=== PATIENT | female | born 1990 | race Caucasian/White ===

== ENCOUNTER 2019-01-17 22:22 | Inpatient (IN) | payer MEDICAID ==
[~2019-01-17] VITALS: Ht 154.9 cm; Wt 62.0 kg
[2019-01-17] MEDS ORDERED: LACTATED RINGER'S 1,000 ML IV SCH (22:29)
[2019-01-17] MEDS ORDERED: CARBOPROST 250 MCG INJ IM PRN ×2 (22:30→23:30)
[2019-01-17] MEDS ORDERED: MISOPROSTOL 200 MCG TAB PR PRN ×2 (22:30→23:30)
[2019-01-17] MEDS ORDERED: OXYTOCIN 30 UNITS/LR 500 ML IV PRN ×2 (22:30→23:30)
[2019-01-17] MEDS ORDERED: IBUPROFEN 600 MG TAB PO PRN (22:30)
[2019-01-17] MEDS ORDERED: LIDOCAINE 1% (MPF) 30 ML INJ INJ PRN (22:30)
[2019-01-17] MEDS ORDERED: BUTORPHANOL 2 MG INJ IV PRN (22:30)
[2019-01-17] MEDS ORDERED: OXYTOCIN 30 UNITS/LR 500 ML IV SCH ×3 (22:30→23:12)
[2019-01-17] MEDS ORDERED: AMPICILLIN 2 GM/NS (PMX) 100 ML IV ONE (22:30)
[2019-01-17] MEDS ORDERED: METHYLERGONOVINE 0.2 MG INJ IM PRN ×2 (22:30→23:30)
[2019-01-17] MEDS ORDERED: BUTORPHANOL 1 MG INJ IV PRN (22:30)
[2019-01-17] MEDS ORDERED: AMPICILLIN 2 GM/NS (PMX) 100 ML ONE (22:31)
--- NOTE | 2019-01-17 23:02 | TRIAGE ---
OB Triage Datetime Report Generated by CPN: 01/17/2019 23:02 Datetime: 01/17/2019 22:28 Time of Arrival: 01/17/2019 22:17 EGA: 39.2 Arrived By: Wheelchair Arrived From: Home Chief Complaint: UC'S Movement: Present Contractions: Regular Time Contractions Began: 01/17/2019 19:00 Contractions: Q2MIN PER PT Rupture of Membranes: Denies Vaginal Discharge: Denies Recent Sexual Intercouse: Denies Abdominal Trauma: Not Applicable Patient Complaints: Contractions Time Provider Notified: 01/17/2019 22:21 Provider Notified: ESHAGHIAN Initial Plan: SVE, CEFM Datetime: 01/17/2019 22:20 Pain Assessment Pain Scale: 10 Pain Presence: Intermittent Pain Type: Contraction Pain Location: Abdomen Pain Goal: 0 Pain Relief Measures: Comfort Measures Vaginal Exam Dilatation (cms): 10.0 Effacement (%): 100 Station: 0 Membrane Status: Bulging
--- NOTE | 2019-01-17 23:17 | LDN ---
Date/Time of Note Date/Time of Note DATE: 01/17/19 TIME: 23:16 Delivery Summary Weeks of Gestation 39 Placenta Delivered: Spontaneously Meconium: Light Episiotomy: No Perineal laceration: 2 Laceration repair: 2nd degree perineal laceration repair with 2-0 and 3-0 chromic Anesthesia type: Local Estimated blood loss: 200 Sponge & Needle done & correct: Yes All needle counts correct: Yes Any foreign bodies felt in the: No Infant Delivery Information Sex Infant Sex: female Apgars 1 Minute: 8 5 Minute: 9 Suctioning Nose & mouth suctioned at ryan: No Delee suction performed: No Umbilical Cord Umbilical cord with: 3 Vessels Cord presentations: no nuchal cord Cord Blood was obtained: Yes MIGUEL SILVER MD Jan 17, 2019 23:17
[2019-01-17] MEDS ORDERED: WITCH HAZEL/GLYCERIN PAD PR PRN (23:30)
[2019-01-17] MEDS ORDERED: LANOLIN HPA 1 PKT TOP PRN (23:30)
[2019-01-17] MEDS ORDERED: BENZOCAINE 20% 56 ML SPRAY TOP PRN (23:30)
[2019-01-17] MEDS ORDERED: NACL 0.9% 3 ML SYG IV SCH (23:30)
[2019-01-17] MEDS ORDERED: ONDANSETRON 4 MG INJ IV PRN (23:30)
[2019-01-17] MEDS ORDERED: SENNA/DOCUSATE NA (8.6MG/50MG) TAB PO PRN (23:30)
[2019-01-17] MEDS ORDERED: OXYCODONE/ASPIRIN (4.88/325) TAB PO PRN ×2 (23:30)
[2019-01-17] MEDS ORDERED: ACETAMINOPHEN 325 MG TAB PO PRN (23:30)
--- NOTE | 2019-01-17 23:43 | PREOPHP ---
DATE OF ADMISSION: 01/17/2019 HISTORY OF PRESENT ILLNESS: Ms. Adela Arevalo is a 28-year-old 2, para 1, EDC 01/22/2019, i ntrauterine at 39 weeks gestational age, presented to triage in active labor. She reports having contractions since early this evening. She denies any vaginal bleeding or discharge. Her pre [place] care took place at [facility]; however, no care records available a t this time. PAST MEDICAL HISTORY: None. MEDICATIONS: vitamins. PAST SURGICAL HISTORY: None. OBSTETRICAL HISTORY: x1 vaginal delivery. GYNECOLOGIC HISTORY: 12, regular 3 to 4 days. She denies any sexually transmitted disease. Sexuall y active with 1 partner. SOCIAL HISTORY: She denies any smoking, drugs or alcohol. FAMILY HISTORY: None. REVIEW OF SYSTEMS: All within normal except history of present illness. PHYSICAL EXAMINATION: HEENT: Within normal. LUNGS: CTA bilateral. CARDIOVASCULAR: S1, S2, regular rhythm. ABDOMEN: Gravid and nontender. Negative CVA bilateral. EXTREMITIES: Negative. No calf tenderness. PELVIC: Vaginal exam fully dilated, 100% effaced, +2 station, intact. heart tracing category 1. Tocometer regular contractions. ASSESSMENT: Intrauterine at term, in active labor. PLAN: Anticipate vaginal delivery. Dictated By: MIGUEL ARANGO/ALEX Conf#: [id number] DID#: [id number]
[2019-01-18 00:20] VITALS: Ht 154.9 cm; Wt 62.0 kg
[2019-01-18 00:45] VITALS: BP 123/74; PULSE 87; RESP 20
[2019-01-18] MEDS ORDERED: AMPICILLIN 1 GM/NS (PMX) 50 ML IV SCH (02:30)
[2019-01-18 04:00] VITALS: BP 112/59; PULSE 89; RESP 18
[2019-01-18] MEDS: IBUPROFEN 600 MG TAB PO SCH ×4 (06:30→17:33)
[2019-01-18 08:30] VITALS: BP 110/71; PULSE 80; RESP 16
[2019-01-18] MEDS: SENNA/DOCUSATE NA (8.6MG/50MG) TAB PO SCH ×2 (08:41→21:59)
[2019-01-18 12:19] VITALS: BP 109/72; PULSE 77; RESP 18
--- NOTE | 2019-01-18 13:35 | PD.PPDC ---
QUALITY CONTROL ASSESSOR Discharge Instruction Condition [id number] Patient Condition: Kxnim2k Good Diet Hjxjn9Td Diet: Rtzfi0n Resume Regular Diet Activity/Restrictions [id number] Activity: Dwzik6q Normal Activity May Shower Vaqgk1Pc Restrictions: Ubdxc2b No Exercising No Lifting No Driving No Sexual Activity Nothing in the Vagina No Lannon No Tampons, douche Wound/Drain Care Instructions [id number] Wound/Drain Care Instructions: Wrwby0v Wash with soap and water Keep clean and dry Follow-up Follow-up with Physician: 3, Week/Weeks Return to clinic for Rfpud6Tm GENERAL LEDGER ACCOUNTANT Instructions: Qjted6h Fever greater than 101 Chills Worsening abdominal pain Excessive Vaginal Bleeding More than 2 pads per hour Unable to tolerate diet [id number] OB Instructions: Wvcod2l Breast Tenderness Depression Blurried Vision Headache [id number] Surgical Instructions: Hmcex0y Incisional Drainage Incisional Redness MIGUEL SILVER MD Jan 18, 2019 13:35
--- NOTE | 2019-01-18 13:36 | DS ---
Date/Time of Note Date/Time of Note DATE: 01/18/19 TIME: 13:36 Obstetrical Discharge Record Final Diagnosis Final Diagnosis: Term delivered Vaginal Delivery Obstetrical Delivery: Spontaneous, Laceration, Repaired Condition on Discharge Physical Assessment Last Vitals: stable afebrile Voiding: Yes Bowel Movement: Yes Breast: Soft, non-tender, Filling Fundus: Firm Calf Tenderness: No Patient Condition: Fair MIGUEL SILVER MD Jan 18, 2019 13:36
[2019-01-18 15:43] VITALS: BP 118/63; PULSE 72; RESP 17
[2019-01-18 20:00] VITALS: BP 115/65; PULSE 72; RESP 18
[2019-01-19] MEDS: IBUPROFEN 600 MG TAB PO SCH ×3 (00:07→12:00)
[2019-01-19 04:00] VITALS: BP 95/59; PULSE 63; RESP 18
[2019-01-19 08:00] VITALS: BP 110/80; PULSE 75; RESP 18
[2019-01-19] MEDS: SENNA/DOCUSATE NA (8.6MG/50MG) TAB PO SCH (08:45)
[2019-01-19] MEDS ORDERED: DIPHTH/TET/ACEL PERTUSS (ADULT) 0.5 ML VIAL IM* ONE (14:00)
--- NOTE | 2019-01-26 11:24 | DELSUM ---
Delivery Summary A-C Datetime Report Generated by CPN: 01/26/2019 11:20 DELIVERY PERSONNEL Automotive Porter: LoganafrenFlor lopezyce MATERNAL INFORMATION Delivery Anesthesia: Local Medications in Delivery: LR 500 + 30 units pitocin Delivery QBL (ml): 200 Placenta Cultured: No Maternal Complications: None LABOR SUMMARY EDC: 01/22/2019 00:00 No. Babies in Womb: 1 Attempted: No Labor Anesthesia: None LABOR INFORMATION Reason for Induction: Not Applicable Onset of Labor: 01/17/2019 19:00 Complete Dilatation: 01/17/2019 22:20 Other Ripening Agents: N/A Oxytocin: N/A Group B Beta Strep: Done, Result Unknown Antibiotics # of Doses: 1 Antibiotics Time of Last Dose: 01/17/2019 22:40 Steroids Given: None Reason Steroids Not Administered: Not Applicable MEMBRANES Membranes Rupture Method: Artificial Rupture of Membranes: 01/17/2019 22:48 Length of Rupture (hr): 0.12 Amniotic Fluid Color: Heavy Meconium Amniotic Fluid Amount: Moderate Amniotic Fluid Odor: Normal STAGES OF LABOR Stage 1 hr: 3 Stage 1 min: 20 Stage 2 hr: 0 Stage 2 min: 35 Stage 3 hr: 0 Stage 3 min: 1 Total Time in Labor hr: 3 Total Time in Labor min: 56 VAGINAL DELIVERY Episiotomy: None Laceration Extension: Second Degree Laceration Type: Perineal Laceration Repair: Yes Initial Vag Sponge Count: 10 Final Vag Sponge Count: 10 Initial Vag Sharps Count: 4 Final Vag Sharps Count: 4 Sponge Count Correct: Yes; Vaginal Sweep Performed Sharps Count Correct: Yes BABY A INFORMATION Delivery Date/Time: 01/17/2019 22:55 Method of Delivery: Vaginal Born in Route : No : N/A Forceps: N/A Vacuum Extraction: N/A Shoulder Dystocia : N/A SHOULDER DYSTOCIA BABY A Infant Delivery Date/Time: 01/17/2019 22:55 PRESENTATION/POSITION BABY A Presentation: Cephalic Cephalic Presentation: Vertex Vertex Position: Right Occipital Anterior Breech Presentation: N/A PLACENTA INFORMATION BABY A Placenta Delivery Time : 01/17/2019 22:56 Placenta Method of Delivery: Spontaneous Placenta Status: Delivered SCORES BABY A Heart Rate 1 min: >100 bpm Resp Effort 1 min: Good Cry Reflex Irritability 1 min: Cough/Sneeze/Pulls Away Muscle Tone 1 min: Active Motion Color 1 min: Blue/Pale Resuscitation Effort 1 min: Tactile Stimulation SCORE 1 MIN: 8 Heart Rate 5 min: >100 bpm Resp Effort 5 min: Good Cry Reflex Irritability 5 min: Cough/Sneeze/Pulls Away Muscle Tone 5 min: Active Motion Color 5 min: Body Evans, Extremit Blue Resuscitation Effort 5 min: Tactile Stimulation SCORE 5 MIN: 9 INFORMATION BABY A Gestational Age at Delivery: 39.2 Gestational Status: Full Term- 39- 40.6 Weeks Infant Outcome : Liveborn Infant Condition : Stable Sex: Female IDENTIFICATION/MEDS BABY A ID Band Number: [id number] ID Band Location: Right Leg; Left Arm Sensor Applied: Yes Sensor Number: [id number] Sensor Location : Cord Clamp Vitamin K Given : Not Given Erythromycin Given: Not Given WEIGHT/LENGTH BABY A Birthweight (gm): 2680 Infant Weight (lb): 5 Weight (oz): 15 Length (in): 18.00 Infant Length (cm): 45.72 CORD INFORMATION BABY A No. Cord Vessels: 3 Nuchal Cord : N/A Nuchal Cord- Other: 0 True Knot: 0 Cord Blood Taken: Yes Banking/Donate Info: No Suction: Mouth; Nose ASSESSMENT BABY A Infant Complications: None Physical Findings at Delivery: Within Normal Limits Physical Findings- Other: 8ml deleed thick mec Respirations: Appears Normal Public Affairs Officer/ALS Called : No Infant Care By: Pancho DE LEÓN/Stanislaw LEE Transferred To: Remains with Mother
== END 2019-01-19 15:30 | disposition home or self-care (01) | DRG 807 ==
LOC: L-D 22:22 → PP1 01-18 00:38
PROVIDERS: ADMIT Obstetrics & Gynecology; ATTEND Obstetrics & Gynecology
PROC: 10E0XZZ Delivery of Products of Conception, External Approach (ICD-10-PCS; principal; 2019-01-17)
PROC: 0KQM0ZZ Repair Perineum Muscle, Open Approach (ICD-10-PCS; 2019-01-17)
DX: O77.0 Labor and delivery complicated by meconium in amniotic fluid (principal); Z37.0 Single live birth; O70.1 Second degree perineal laceration during delivery; Z3A.39 39 weeks gestation of pregnancy; Z23 Encounter for immunization
CPT/HCPCS: 85014; 85018; 85025; 85610; 85730; 86592; 86850; 86900; 86901; 87340; 90686; 90715; 99464; J0290; J0595; J2590; J7120